=== PATIENT | female | born 1935 | race Caucasian/White ===

== ENCOUNTER 2022-04-01 11:29 | Inpatient (IN) | payer MEDICARE ==
[~2022-04-01] VITALS: Ht 165.1 cm; Wt 77.2 kg
[~2022-04-01 11:29] MED LIST: ASPI-1265 PO; CITA20TA28 PO; RED600TA PO; cpap; d-3
[2022-04-01] MEDS ORDERED: methylPREDNISolone sod succ 125mg/2ml vial IV ONE (11:50)
[2022-04-01] MEDS ORDERED: albuterol 2.5 MG/3 ML nebule CONTNEB PRN ×2 (11:50→12:10)
[2022-04-01 11:57] LABS: BASOPHILS # (AUTO) 0.1 X10'3 (0-0.2); HEMOGLOBIN 12.2 g/dl (12.0-16.0); MEAN PLATELET VOLUME 8.7 FL (7.4-10.4)
[2022-04-01 11:59] LABS: BASOPHILS % (AUTO) 0.4 % (0-1); EOSINOPHILS % (AUTO) 0 % (0-6); HEMATOCRIT 38.4 % (35.0-45.0); LYMPHOCYTES # (AUTO) 1.1 X10'3 (1.1-4.8); LYMPHOCYTES % (AUTO) 3.5 % (21-51); MEAN CORPUSCULAR HEMOGLOBIN 29.7 PG (27.0-31.0); MEAN CORPUSCULAR HGB CONC 31.9 g/dL (33.0-36.5); MEAN CORPUSCULAR VOLUME 93.2 FL (78-98); MONOCYTES # (AUTO) 2.2 X10'3 (0-0.9); MONOCYTES % (AUTO) 6.7 % (2-12); NEUTROPHILS # (AUTO) 29.2 X10'3 (1.8-7.7); NEUTROPHILS % (AUTO) 89.4 % (42-75); PLATELET COUNT 248 X10'3 (140-440); RED BLOOD COUNT 4.12 X10'6 (4.20-5.60); RED CELL DISTRIBUTION WIDTH 13.2 % (11.5-14.5)
[2022-04-01] MEDS ORDERED: albuterol 2.5 MG/3 ML nebule ONE (12:04)
[2022-04-01 12:07] LABS: WHITE BLOOD COUNT 32.7 X10'3 (4.5-11.0)
[2022-04-01] MEDS ORDERED: azithromycin/NS 500mg/250ml 250 ML IV ONE (12:20)
[2022-04-01] MEDS ORDERED: normal saline 1000ML IV soln IVB ONE (12:20)
[2022-04-01] MEDS ORDERED: CefTRIAXone/D5W-Rocephin 1gm 50 ML IV ONE (12:20)
[2022-04-01 12:23] LABS: ALANINE AMINOTRANSFERASE 17 U/L (12-78); ALBUMIN 2.9 G/DL (3.4-5.0); ALBUMIN/GLOBULIN RATIO 0.7 (1.1-1.5); ALKALINE PHOSPHATASE 63 IU/L (46-116); ANION GAP 12 (8-16); ASPARTATE AMINO TRANSFERASE 25 U/L (10-37); BILIRUBIN,TOTAL 0.8 MG/DL (0.1-1.0); BLOOD UREA NITROGEN 34 MG/DL (7-18); BUN/CREATININE RATIO 14.9 (6.6-38.0); CALCIUM 8.9 MG/DL (8.5-10.1); CHLORIDE 98 MMOL/L (99-107); CREATININE 2.28 MG/DL (0.40-0.90); GLUCOSE 114 MG/DL (70-104); SODIUM 134 MMOL/L (135-145); TOTAL CARBON DIOXIDE 23.7 MMOL/L (24-32); TOTAL PROTEIN 7.3 G/DL (6.4-8.2); eGFR 20 ML/MIN
[2022-04-01 12:28] LABS: PLATELET ESTIMATE NORMAL; TOTAL CELLS COUNTED 100
[2022-04-01 12:30] LABS: MAGNESIUM 1.9 MG/DL (1.5-2.4)
[2022-04-01] MEDS ORDERED: mag hydrox/Alum hydrox/simeth 30ml oral suspension PO PRN (13:15)
[2022-04-01] MEDS ORDERED: acetaminophen 325mg tablet PO PRN ×2 (13:15)
[2022-04-01] MEDS ORDERED: HYDROcodone/acetaminophen 10/325mg tab PO PRN (13:15)
[2022-04-01] MEDS ORDERED: acetaminophen 650mg rectal suppository RC PRN (13:15)
[2022-04-01] MEDS ORDERED: magnesium 4gm in 100ml NS 100 ML IV PRN (13:15)
[2022-04-01] MEDS ORDERED: magnesium Cl slow-release 64mg tablet PO PRN (13:15)
[2022-04-01] MEDS ORDERED: potassium Cl 40MEQ/1/2NS 520ml 520 ML IV PRN (13:15)
[2022-04-01] MEDS ORDERED: morphine 2 MG/ML inj. syringe IV PRN ×2 (13:15)
[2022-04-01] MEDS ORDERED: magnesium hydroxide 30ml (MOM) UD suspension PO PRN (13:15)
[2022-04-01] MEDS ORDERED: HYDROcodone/acetaminophen 5mg/325mg tablet PO PRN (13:15)
[2022-04-01] MEDS ORDERED: ondansetron 4mg rapidly disintigrating tab PO PRN (13:15)
[2022-04-01] MEDS ORDERED: potassium Cl 20 mEq SR tablet PO PRN ×2 (13:15)
[2022-04-01] MEDS ORDERED: PERFLUTREN PROTEIN-A MICROSPHR (Optison) 0.22 MG/ML 3ML VIAL IV ONE (13:15)
[2022-04-01] MEDS ORDERED: ondansetron/PF 4mg/2ml inj IV PRN (13:15)
[2022-04-01] MEDS: normal saline 1000ml 1,000 ML IV SCH ×2 (14:06→23:17)
[2022-04-01] MEDS: ipratropium/albuterol 3ml nebule NEB PRN (14:19)
[2022-04-01] MEDS ORDERED: aspirin 81mg tab.chew PO ONE (15:40)
[2022-04-01] MEDS ORDERED: WARF4TAB69 PO (18:40)
[2022-04-01] MEDS ORDERED: FLUT1BLS13 PO (18:40)
[2022-04-01] MEDS ORDERED: WARF-65 PO (18:40)
[2022-04-01] MEDS ORDERED: ESCI20TA39 PO (18:40)
[2022-04-01] MEDS ORDERED: ALBU18HF2 PO (18:41)
[2022-04-01] MEDS: famotidine 20mg tablet PO SCH (19:43)
[2022-04-01] MEDS: docusate sod 100mg capsule PO SCH (19:43)
[2022-04-01] MEDS: K and/or MAG REPLACEMENT MC SCH (19:44)
[2022-04-01] MEDS ORDERED: enoxaparin 30mg/0.3ml syringe SQ SCH (20:00)
[2022-04-01] MEDS ORDERED: temazepam 15mg capsule PO PRN (21:00)
--- NOTE | 2022-04-01 23:00 | NUR ---
RT ASSISTED PT WITH HOME CPAP MACHINE FOR SLEEP
[2022-04-02] MEDS ORDERED: non-formulary drug (Warfarin Sodium 1 TABLET) PO SCH (00:30)
[2022-04-02] MEDS: albuterol 2.5 MG/3 ML nebule NEB SCH ×4 (03:00→20:09)
[2022-04-02 04:04] LABS: BASOPHILS % (AUTO) 0.1 % (0-1); EOSINOPHILS % (AUTO) 0 % (0-6); HEMATOCRIT 33.5 % (35.0-45.0); HEMOGLOBIN 10.9 g/dl (12.0-16.0); LYMPHOCYTES # (AUTO) 1.2 X10'3 (1.1-4.8); LYMPHOCYTES % (AUTO) 4.6 % (21-51); MEAN CORPUSCULAR HEMOGLOBIN 30.6 PG (27.0-31.0); MEAN CORPUSCULAR HGB CONC 32.6 g/dL (33.0-36.5); MEAN CORPUSCULAR VOLUME 93.7 FL (78-98); MONOCYTES # (AUTO) 1.1 X10'3 (0-0.9); MONOCYTES % (AUTO) 4.3 % (2-12); NEUTROPHILS # (AUTO) 22.7 X10'3 (1.8-7.7); PLATELET COUNT 219 X10'3 (140-440); RED BLOOD COUNT 3.58 X10'6 (4.20-5.60); RED CELL DISTRIBUTION WIDTH 13.5 % (11.5-14.5)
[2022-04-02 04:09] LABS: ALANINE AMINOTRANSFERASE 16 U/L (12-78); ALBUMIN 2.3 G/DL (3.4-5.0); ALBUMIN/GLOBULIN RATIO 0.6 (1.1-1.5); ALKALINE PHOSPHATASE 76 IU/L (46-116); ANION GAP 9 (8-16); ASPARTATE AMINO TRANSFERASE 22 U/L (10-37); BILIRUBIN,TOTAL 0.3 MG/DL (0.1-1.0); BLOOD UREA NITROGEN 44 MG/DL (7-18); CALCIUM 8.1 MG/DL (8.5-10.1); CHLORIDE 105 MMOL/L (99-107); CREATININE 2.31 MG/DL (0.40-0.90); GLUCOSE 205 MG/DL (70-104); MAGNESIUM 2.1 MG/DL (1.5-2.4); PHOSPHORUS 2.9 MG/DL (2.3-4.5); POTASSIUM 3.6 MMOL/L (3.5-5.1); SODIUM 138 MMOL/L (135-145); TOTAL CARBON DIOXIDE 23.9 MMOL/L (24-32); TOTAL PROTEIN 6.3 G/DL (6.4-8.2); eGFR 20 ML/MIN
[2022-04-02] MEDS: K and/or MAG REPLACEMENT MC SCH ×2 (08:00→19:07)
[2022-04-02] MEDS: budesonide 0.5mg/2ml UD nebule IH SCH ×2 (08:43→20:09)
[2022-04-02] MEDS: normal saline 1000ml 1,000 ML IV SCH ×2 (10:03→10:12)
[2022-04-02] MEDS: azithromycin/NS 500mg/250ml 250 ML IV SCH (10:12)
[2022-04-02] MEDS: CefTRIAXone/D5W-Rocephin 1gm 50 ML IV SCH (10:12)
[2022-04-02] MEDS: famotidine 20mg tablet PO SCH (10:12)
[2022-04-02] MEDS: aspirin 81mg tab.chew PO SCH (10:12)
[2022-04-02] MEDS: docusate sod 100mg capsule PO SCH ×2 (10:12→19:07)
[2022-04-02] MEDS: ESCITALOPRAM OXALATE 5 MG TABLET PO SCH (10:13)
--- NOTE | 2022-04-02 14:03 | NUR ---
Incentive Spirometer and Flutter valve given to patient per doctor. Addendum: 04/02/22 at 1419 by Gail Moon RN Amended: Links added.
[2022-04-02 15:30] VITALS: BP 159/66
[2022-04-02] MEDS ORDERED: diltiazem-D5W 125mg/125ml 125 ML IV SCH (16:40)
[2022-04-02] MEDS ORDERED: diltiazem 5mg/ml 5ml inj. IV ONE (16:40)
--- NOTE | 2022-04-02 17:32 | NUR ---
received report from Gail so I can start cardizem gtt .Lizzeth not here from pharmacy. I will call down and have them send it up
[2022-04-02] MEDS: diltiazem-NS 100mg/100ml 100 ML IV SCH (17:41)
[2022-04-02 18:00] VITALS: BP_SYST 142; BP_SYST 145; BP_DIAS 70; BP_DIAS 74
--- NOTE | 2022-04-02 18:07 | NUR ---
Problems reprioritized. Patient report given, questions answered & plan of care reviewed with Herbert SANTANA. Patient resting in bed in no acute distress. Cardizem gtt started.
--- NOTE | 2022-04-02 18:30 | NUR ---
Problems reprioritized. Patient report given, questions answered & plan of care reviewed with Dunia SANTANA.
[2022-04-02 22:00] VITALS: BP 131/74
[2022-04-03] VITALS (10 sets, daily range): BP systolic 77–138; BP diastolic 56–88
[2022-04-03] MEDS: albuterol 2.5 MG/3 ML nebule NEB SCH ×4 (02:55→19:50)
[2022-04-03] MEDS: ipratropium/albuterol 3ml nebule NEB PRN ×2 (05:36→22:52)
[2022-04-03] MEDS: normal saline 1000ml 1,000 ML IV SCH ×2 (05:43→15:23)
[2022-04-03] MEDS: diltiazem-NS 100mg/100ml 100 ML IV SCH (05:44)
[2022-04-03] MEDS: CefTRIAXone/D5W-Rocephin 1gm 50 ML IV SCH (07:24)
[2022-04-03] MEDS: azithromycin/NS 500mg/250ml 250 ML IV SCH (07:24)
[2022-04-03] MEDS: docusate sod 100mg capsule PO SCH ×2 (07:27→20:27)
[2022-04-03] MEDS: ESCITALOPRAM OXALATE 5 MG TABLET PO SCH (07:27)
[2022-04-03] MEDS: aspirin 81mg tab.chew PO SCH (07:27)
[2022-04-03] MEDS: K and/or MAG REPLACEMENT MC SCH ×2 (08:00→20:00)
[2022-04-03 08:15] LABS: HEMATOCRIT 32.7 % (35.0-45.0); HEMOGLOBIN 10.7 g/dl (12.0-16.0); MEAN CORPUSCULAR VOLUME 93.1 FL (78-98); RED BLOOD COUNT 3.52 X10'6 (4.20-5.60); WHITE BLOOD COUNT 28.7 X10'3 (4.5-11.0)
[2022-04-03 08:16] LABS: BASOPHILS # (AUTO) 0.1 X10'3 (0-0.2); BASOPHILS % (AUTO) 0.2 % (0-1); EOSINOPHILS % (AUTO) 0 % (0-6); LYMPHOCYTES # (AUTO) 0.9 X10'3 (1.1-4.8); LYMPHOCYTES % (AUTO) 3.2 % (21-51); MEAN CORPUSCULAR HEMOGLOBIN 30.5 PG (27.0-31.0); MEAN CORPUSCULAR HGB CONC 32.8 g/dL (33.0-36.5); MONOCYTES # (AUTO) 1.9 X10'3 (0-0.9); MONOCYTES % (AUTO) 6.5 % (2-12); NEUTROPHILS # (AUTO) 25.8 X10'3 (1.8-7.7); NEUTROPHILS % (AUTO) 90.1 % (42-75); PLATELET COUNT 267 X10'3 (140-440); RED CELL DISTRIBUTION WIDTH 13.7 % (11.5-14.5)
--- NOTE | 2022-04-03 08:26 | NUR ---
Joe VELASCO re: critical lab, Patient 14B Danae Baxter, critical lab @ 0600 today wbc 28.7, previous values - wbc 04/01 32.7, and 04/02 wbc 25.0. Please advise, Avelina Harrell LVN II @ 2657.
[2022-04-03 08:36] LABS: ANION GAP 10 (8-16); BILIRUBIN,TOTAL 0.3 MG/DL (0.1-1.0); BLOOD UREA NITROGEN 48 MG/DL (7-18); CALCIUM 8.2 MG/DL (8.5-10.1); CHLORIDE 108 MMOL/L (99-107); GLUCOSE 133 MG/DL (70-104); MAGNESIUM 2.2 MG/DL (1.5-2.4); PHOSPHORUS 2.4 MG/DL (2.3-4.5); POTASSIUM 3.7 MMOL/L (3.5-5.1); SODIUM 140 MMOL/L (135-145); TOTAL CARBON DIOXIDE 21.7 MMOL/L (24-32); TOTAL PROTEIN 6.4 G/DL (6.4-8.2); eGFR 30 ML/MIN
[2022-04-03 08:37] LABS: ALANINE AMINOTRANSFERASE 23 U/L (12-78); ALBUMIN 2.3 G/DL (3.4-5.0); ALBUMIN/GLOBULIN RATIO 0.6 (1.1-1.5); ASPARTATE AMINO TRANSFERASE 22 U/L (10-37)
[2022-04-03 09:12] LABS: ELLIPTOCYTES FEW; PLATELET ESTIMATE NORMAL; POIKILOCYTOSIS FEW; TOTAL CELLS COUNTED 100
[2022-04-03] MEDS: budesonide 0.5mg/2ml UD nebule IH SCH ×2 (09:12→19:50)
[2022-04-03 09:16] LABS: ALKALINE PHOSPHATASE 55 IU/L (46-116)
[2022-04-03] MEDS ORDERED: NORMAL SALINE IV ONE (12:30)
[2022-04-03] MEDS ORDERED: PHYTONADIONE IV ONE (12:30)
[2022-04-03] MEDS: diltiazem 30mg tablet PO SCH ×2 (14:30→20:27)
--- NOTE | 2022-04-03 15:38 | NUR ---
cardizem gtt off and DC patient on po med
--- NOTE | 2022-04-03 17:50 | NUR ---
orientee documentation: I have reviewed and agree with all interventions, assessments performed and documented by Avelina NEWSOME . Orientee Medication Administration: For this medication-pass time frame, all medication were reviewed, dispensed, administered and documented per hospital policy by Avelina NEWSOME .
--- NOTE | 2022-04-03 18:06 | NUR ---
Problems reprioritized. Patient report given, questions answered & plan of care reviewed with Herbert SANTANA. Patient resting in bed in n acute distress.
[2022-04-03 23:31] LABS: ABG BASE EXCESS -6.1 mmol/L (-2.0-2.0); ABG HCO3 18.8 mmol/L (22.0-26.0); ABG OXYGEN SATURATION 95.3 % (94-97); ABG PCO2 (T) 35.2 mmHg (32.0-45.0); ABG PO2 (T) 82.1 mmHg (75.0-100.0); ALLEN'S TEST POSITIVE; FCOHb 0.3 % (0.0-3.9); FMetHb 0.4 % (0.0-1.5); FO2Hb 94.6 % (94-97); TOTAL HEMOGLOBIN 11.9 G/dl (12.0-16.0)
--- NOTE | 2022-04-03 23:49 | NUR ---
6843 Dr Piedra reported vital signs and pt resp distress RT at bedside portable chest xray taken as ordered ABG drawn as per orders Charlotte Chen RN
[2022-04-04] VITALS (13 sets, daily range): BP systolic 112–166; BP diastolic 54–85
[2022-04-04] MEDS: normal saline 1000ml 1,000 ML IV SCH ×3 (01:15→22:35)
[2022-04-04] MEDS: diltiazem 30mg tablet PO SCH ×4 (02:20→19:33)
[2022-04-04] MEDS: albuterol 2.5 MG/3 ML nebule NEB SCH ×4 (03:21→19:51)
--- NOTE | 2022-04-04 06:30 | NUR ---
Patient in room PCU 3014. I have received report from Herbert SANTANA and had the opportunity to ask questions and assume patient care.
[2022-04-04 07:06] LABS: BASOPHILS % (AUTO) 0.1 % (0-1); EOSINOPHILS % (AUTO) 0 % (0-6); HEMATOCRIT 29.7 % (35.0-45.0); HEMOGLOBIN 9.8 g/dl (12.0-16.0); LYMPHOCYTES # (AUTO) 1.2 X10'3 (1.1-4.8); LYMPHOCYTES % (AUTO) 3.7 % (21-51); MEAN CORPUSCULAR HEMOGLOBIN 30.5 PG (27.0-31.0); MEAN CORPUSCULAR HGB CONC 32.8 g/dL (33.0-36.5); MEAN CORPUSCULAR VOLUME 92.8 FL (78-98); MEAN PLATELET VOLUME 8.9 FL (7.4-10.4); MONOCYTES # (AUTO) 2.6 X10'3 (0-0.9); MONOCYTES % (AUTO) 8.2 % (2-12); NEUTROPHILS # (AUTO) 27.7 X10'3 (1.8-7.7); PLATELET COUNT 259 X10'3 (140-440); RED CELL DISTRIBUTION WIDTH 13.8 % (11.5-14.5)
[2022-04-04 07:16] LABS: WHITE BLOOD COUNT 31.5 X10'3 (4.5-11.0)
[2022-04-04] MEDS: budesonide 0.5mg/2ml UD nebule IH SCH ×2 (07:19→19:51)
--- NOTE | 2022-04-04 07:25 | NUR ---
PAGER ID: [phone] MESSAGE: 3014B [place] WBC 31.5. Thank you Diamante NEWSOME x [phone].
[2022-04-04 07:54] LABS: PLATELET ESTIMATE NORMAL; TOTAL CELLS COUNTED 100
[2022-04-04] MEDS: K and/or MAG REPLACEMENT MC SCH ×2 (08:00→19:16)
--- NOTE | 2022-04-04 08:24 | NUR ---
PAGER ID: [phone] MESSAGE: 3014 B INR 8.0. Thank you Diamante NEWSOME [phone].
[2022-04-04] MEDS: docusate sod 100mg capsule PO SCH ×2 (08:38→19:33)
[2022-04-04] MEDS: aspirin 81mg tab.chew PO SCH (08:39)
[2022-04-04] MEDS: ESCITALOPRAM OXALATE 5 MG TABLET PO SCH (08:39)
[2022-04-04] MEDS: famotidine 20mg tablet PO SCH (08:39)
[2022-04-04 08:44] LABS: ALANINE AMINOTRANSFERASE 28 U/L (12-78); ALBUMIN 2.3 G/DL (3.4-5.0); ALBUMIN/GLOBULIN RATIO 0.6 (1.1-1.5); ALKALINE PHOSPHATASE 61 IU/L (46-116); ANION GAP 10 (8-16); ASPARTATE AMINO TRANSFERASE 24 U/L (10-37); BILIRUBIN,TOTAL 0.6 MG/DL (0.1-1.0); BLOOD UREA NITROGEN 39 MG/DL (7-18); BUN/CREATININE RATIO 26.4 (6.6-38.0); CALCIUM 8.6 MG/DL (8.5-10.1); CHLORIDE 111 MMOL/L (99-107); CREATININE 1.48 MG/DL (0.40-0.90); GLUCOSE 134 MG/DL (70-104); MAGNESIUM 2.3 MG/DL (1.5-2.4); PHOSPHORUS 2.1 MG/DL (2.3-4.5); POTASSIUM 4.2 MMOL/L (3.5-5.1); SODIUM 143 MMOL/L (135-145); TOTAL CARBON DIOXIDE 22.5 MMOL/L (24-32); TOTAL PROTEIN 6.2 G/DL (6.4-8.2); eGFR 33 ML/MIN
[2022-04-04] MEDS: CefTRIAXone/D5W-Rocephin 1gm 50 ML IV SCH (09:21)
[2022-04-04] MEDS: azithromycin/NS 500mg/250ml 250 ML IV SCH (09:21)
--- NOTE | 2022-04-04 10:22 | NUR ---
PAGER ID: [phone] MESSAGE: 2821O [place] patients phos 2.1 do you want it replaced? Thank you Diamante NEWSOME [phone].
[2022-04-04] MEDS: methylPREDNISolone sod succ 125mg/2ml vial IV SCH ×2 (11:15→16:22)
[2022-04-04] MEDS ORDERED: CefTRIAXone/D5W-Rocephin 1gm 50 ML IV ONE (11:15)
--- NOTE | 2022-04-04 11:38 | NUR ---
Called report to ICU spoke with Marianna SANTANA.
--- NOTE | 2022-04-04 12:20 | NUR ---
Patient transferred to ICU. Patient taken in the bed by 2 nurses and RT. Patient transferred into ICU's bed.
--- NOTE | 2022-04-04 12:20 | NUR ---
Patient transferred with chart, patient specific meds, personal items in stable condition.
--- NOTE | 2022-04-04 12:30 | NUR ---
received pt from pcu. placed on bedside monitor, bipap in place
[2022-04-04 13:39] LABS: ABG BASE EXCESS -5.4 mmol/L (-2.0-2.0); ABG HCO3 19.7 mmol/L (22.0-26.0); ABG OXYGEN SATURATION 96.6 % (94-97); ABG PCO2 (T) 36.8 mmHg (32.0-45.0); ALLEN'S TEST POSITIVE; FCOHb 0.2 % (0.0-3.9); FMetHb 0.3 % (0.0-1.5); FO2Hb 96.1 % (94-97); RESPIRATORY RATE 8 b/min; TIDAL VOLUME 530 mL; TOTAL HEMOGLOBIN 10.2 G/dl (12.0-16.0)
[2022-04-04] MEDS ORDERED: phytonadione inj. 10 MG in normal saline 100ml IV soln 100 ML IV ONE ×2 (14:05→20:15)
--- NOTE | 2022-04-04 18:10 | NUR ---
Patient in room CICU 2013. I have received report from Elvia Wilkins RN and had the opportunity to ask questions and assume patient care.
[2022-04-04] MEDS: lactose-reduced food (Ensure Enlive) - 237ml bottle PO SCH (18:41)
--- NOTE | 2022-04-04 20:14 | NUR ---
Original vitamin K IV order not infused as noted by RN. Bag scanned at 1405, but bag left clamped and bag still full and now . Notified Alise MCKINLEY, new order recieved to run vitamin K because first infusion was not ran. 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
[2022-04-05] VITALS (18 sets, daily range): BP systolic 105–175; BP diastolic 55–98
[2022-04-05] MEDS: methylPREDNISolone sod succ 125mg/2ml vial IV SCH ×3 (00:39→16:41)
[2022-04-05] MEDS: diltiazem 30mg tablet PO SCH ×4 (01:25→20:19)
[2022-04-05] MEDS: albuterol 2.5 MG/3 ML nebule NEB SCH ×4 (03:23→22:10)
[2022-04-05 06:03] LABS: BASOPHILS # (AUTO) 0.1 X10'3 (0-0.2); BASOPHILS % (AUTO) 0.3 % (0-1); EOSINOPHILS % (AUTO) 0 % (0-6); HEMATOCRIT 30.7 % (35.0-45.0); HEMOGLOBIN 9.8 g/dl (12.0-16.0); LYMPHOCYTES # (AUTO) 1.2 X10'3 (1.1-4.8); MEAN CORPUSCULAR HEMOGLOBIN 30.4 PG (27.0-31.0); MEAN CORPUSCULAR VOLUME 95.2 FL (78-98); MEAN PLATELET VOLUME 8.6 FL (7.4-10.4); MONOCYTES # (AUTO) 0.8 X10'3 (0-0.9); MONOCYTES % (AUTO) 3.4 % (2-12); NEUTROPHILS # (AUTO) 21.8 X10'3 (1.8-7.7); NEUTROPHILS % (AUTO) 91.3 % (42-75); PLATELET COUNT 238 X10'3 (140-440); RED BLOOD COUNT 3.23 X10'6 (4.20-5.60); RED CELL DISTRIBUTION WIDTH 14.4 % (11.5-14.5); WHITE BLOOD COUNT 23.9 X10'3 (4.5-11.0)
--- NOTE | 2022-04-05 06:16 | NUR ---
Problems reprioritized. Patient report given, questions answered & plan of care reviewed with Micha RN.
[2022-04-05 06:18] LABS: ALANINE AMINOTRANSFERASE 25 U/L (12-78); ALBUMIN 1.9 G/DL (3.4-5.0); ALBUMIN/GLOBULIN RATIO 0.5 (1.1-1.5); ALKALINE PHOSPHATASE 57 IU/L (46-116); ANION GAP 10 (8-16); ASPARTATE AMINO TRANSFERASE 14 U/L (10-37); BILIRUBIN,TOTAL 0.3 MG/DL (0.1-1.0); BLOOD UREA NITROGEN 37 MG/DL (7-18); BUN/CREATININE RATIO 31.1 (6.6-38.0); CALCIUM 8.6 MG/DL (8.5-10.1); CHLORIDE 108 MMOL/L (99-107); CREATININE 1.19 MG/DL (0.40-0.90); GLUCOSE 179 MG/DL (70-104); MAGNESIUM 2.4 MG/DL (1.5-2.4); PHOSPHORUS 2.7 MG/DL (2.3-4.5); POTASSIUM 4.3 MMOL/L (3.5-5.1); SODIUM 137 MMOL/L (135-145); TOTAL CARBON DIOXIDE 19.2 MMOL/L (24-32); TOTAL PROTEIN 6.1 G/DL (6.4-8.2); eGFR 43 ML/MIN
[2022-04-05] MEDS: K and/or MAG REPLACEMENT MC SCH ×2 (06:51→20:00)
[2022-04-05] MEDS: normal saline 1000ml 1,000 ML IV SCH (07:15)
[2022-04-05] MEDS: budesonide 0.5mg/2ml UD nebule IH SCH ×2 (08:16→22:10)
[2022-04-05 08:55] LABS: TOTAL CELLS COUNTED 100
[2022-04-05] MEDS: CefTRIAXone 2gm/D5W 50ml BAG 50 ML IV SCH (08:56)
[2022-04-05 08:57] LABS: LARGE PLATELETS FEW; PLATELET ESTIMATE NORMAL
[2022-04-05] MEDS: aspirin 81mg tab.chew PO SCH (08:57)
[2022-04-05] MEDS: lactose-reduced food (Ensure Enlive) - 237ml bottle PO SCH ×3 (08:58→18:00)
[2022-04-05] MEDS: docusate sod 100mg capsule PO SCH ×2 (08:58→20:19)
[2022-04-05] MEDS: ESCITALOPRAM OXALATE 5 MG TABLET PO SCH (08:58)
--- NOTE | 2022-04-05 17:33 | NUR ---
Pt transferred to PCU. Reported call. All questions answered to the satisfaction of the accepting RN. Tele removed. Pt transferred in wheelchair on 6L NC.
[2022-04-05] MEDS: apixaban 2.5mg tablet PO SCH (20:19)
[2022-04-06] MEDS: methylPREDNISolone sod succ 125mg/2ml vial IV SCH ×3 (00:52→19:32)
[2022-04-06 02:00] VITALS: BP 154/71
[2022-04-06] MEDS: albuterol 2.5 MG/3 ML nebule NEB SCH ×4 (02:31→20:22)
[2022-04-06] MEDS: diltiazem 30mg tablet PO SCH ×4 (02:47→19:33)
--- NOTE | 2022-04-06 06:16 | NUR ---
Problems reprioritized. Patient report given, questions answered & plan of care reviewed with EN Marie
[2022-04-06 06:47] LABS: BASOPHILS % (AUTO) 0.1 % (0-1); EOSINOPHILS % (AUTO) 0 % (0-6); HEMATOCRIT 30.9 % (35.0-45.0); HEMOGLOBIN 10.1 g/dl (12.0-16.0); LYMPHOCYTES # (AUTO) 1.2 X10'3 (1.1-4.8); LYMPHOCYTES % (AUTO) 4.6 % (21-51); MEAN CORPUSCULAR HEMOGLOBIN 30.3 PG (27.0-31.0); MEAN CORPUSCULAR HGB CONC 32.7 g/dL (33.0-36.5); MEAN CORPUSCULAR VOLUME 92.5 FL (78-98); MEAN PLATELET VOLUME 8.2 FL (7.4-10.4); NEUTROPHILS # (AUTO) 23.1 X10'3 (1.8-7.7); NEUTROPHILS % (AUTO) 91.3 % (42-75); PLATELET COUNT 335 X10'3 (140-440); RED BLOOD COUNT 3.34 X10'6 (4.20-5.60); RED CELL DISTRIBUTION WIDTH 13.8 % (11.5-14.5)
[2022-04-06 06:56] LABS: WHITE BLOOD COUNT 25.3 X10'3 (4.5-11.0)
[2022-04-06 07:00] VITALS: BP 146/59
[2022-04-06 07:09] LABS: PLATELET ESTIMATE NORMAL; POLYCHROMASIA FEW; TOTAL CELLS COUNTED 100
[2022-04-06 07:17] LABS: ALANINE AMINOTRANSFERASE 28 U/L (12-78); ALBUMIN 1.9 G/DL (3.4-5.0); ALBUMIN/GLOBULIN RATIO 0.5 (1.1-1.5); ALKALINE PHOSPHATASE 65 IU/L (46-116); ANION GAP 10 (8-16); ASPARTATE AMINO TRANSFERASE 12 U/L (10-37); BILIRUBIN,TOTAL 0.3 MG/DL (0.1-1.0); BLOOD UREA NITROGEN 45 MG/DL (7-18); BUN/CREATININE RATIO 34.1 (6.6-38.0); CALCIUM 9.2 MG/DL (8.5-10.1); CHLORIDE 109 MMOL/L (99-107); CREATININE 1.32 MG/DL (0.40-0.90); GLUCOSE 221 MG/DL (70-104); PHOSPHORUS 2.3 MG/DL (2.3-4.5); POTASSIUM 4.3 MMOL/L (3.5-5.1); SODIUM 141 MMOL/L (135-145); TOTAL PROTEIN 5.9 G/DL (6.4-8.2); eGFR 38 ML/MIN
--- NOTE | 2022-04-06 07:31 | NUR ---
"MORNING DR. SERRA REPORTING WBC 25.9 FOR PT SHADY, [facility]"
[2022-04-06] MEDS: K and/or MAG REPLACEMENT MC SCH ×2 (08:00→19:16)
[2022-04-06] MEDS: CefTRIAXone 2gm/D5W 50ml BAG 50 ML IV SCH (08:33)
[2022-04-06] MEDS: aspirin 81mg tab.chew PO SCH (08:34)
[2022-04-06] MEDS: docusate sod 100mg capsule PO SCH ×2 (08:34→20:00)
[2022-04-06] MEDS: famotidine 20mg tablet PO SCH (08:34)
[2022-04-06] MEDS: ESCITALOPRAM OXALATE 5 MG TABLET PO SCH (08:34)
[2022-04-06] MEDS: lactose-reduced food (Ensure Enlive) - 237ml bottle PO SCH ×3 (08:35→18:01)
[2022-04-06] MEDS: apixaban 2.5mg tablet PO SCH ×2 (08:35→20:20)
[2022-04-06] MEDS: budesonide 0.5mg/2ml UD nebule IH SCH ×2 (08:38→20:22)
--- NOTE | 2022-04-06 11:04 | NUR ---
NEED IV ACCESS FOR PT IN ROOM 3028B, SHADY SCHRADER
[2022-04-06 13:00] VITALS: BP 142/80
--- NOTE | 2022-04-06 14:04 | NUR ---
Initial: Pt admit for sepsis, PNA, ELIO with hyponatremia, COPD exacerbation, and acute on chronic respiratory failure with hypoxemia. Pt on a regular diet, documented with mostly 25% PO intake though up to 50% PO intake at dinner 04/05. Pt started on an Ensure Enlive TID, documented with 75% PO intake of 2 of 4 ONS. Pending documentation of PO intake of meals and ONS for today. Will monitor additional trends and need for further nutrition intervention. LBM 04/03, receiving routine bowel care BID and with additional PRN bowel care available. Will continue to follow closely. Recommendations: 1) Continue regular diet 2) Ensure Enlive TID (sub Ensure Plus HP d/t product shortage) 3) Encourage PO intake 4) Routine bowel care 5) Daily scaled weights per rx Addendum: 04/06/22 at [address] Amended: Links added.
[2022-04-06 18:00] VITALS: BP 153/68
[2022-04-06 22:00] VITALS: BP 159/84
[2022-04-07 02:00] VITALS: BP 167/77
[2022-04-07] MEDS: diltiazem 30mg tablet PO SCH ×4 (02:00→20:03)
[2022-04-07] MEDS: albuterol 2.5 MG/3 ML nebule NEB SCH ×4 (02:44→20:18)
[2022-04-07 07:00] VITALS: BP 163/91
[2022-04-07] MEDS: K and/or MAG REPLACEMENT MC SCH ×2 (08:00→19:13)
[2022-04-07] MEDS: CefTRIAXone 2gm/D5W 50ml BAG 50 ML IV SCH (08:16)
[2022-04-07] MEDS: aspirin 81mg tab.chew PO SCH (08:17)
[2022-04-07] MEDS: docusate sod 100mg capsule PO SCH ×2 (08:17→20:03)
[2022-04-07] MEDS: methylPREDNISolone sod succ 125mg/2ml vial IV SCH ×2 (08:17→20:04)
[2022-04-07] MEDS: lactose-reduced food (Ensure Enlive) - 237ml bottle PO SCH ×4 (08:17→18:57)
[2022-04-07] MEDS: ESCITALOPRAM OXALATE 5 MG TABLET PO SCH (08:17)
[2022-04-07] MEDS: apixaban 2.5mg tablet PO SCH ×2 (08:17→20:03)
[2022-04-07] MEDS: budesonide 0.5mg/2ml UD nebule IH SCH ×2 (09:28→20:18)
[2022-04-07 13:00] VITALS: BP 177/68
[2022-04-07] MEDS: guaiFENesin/DM 10ml UD oral syrup PO PRN (13:33)
[2022-04-07 16:56] VITALS: BP 149/71
[2022-04-07 18:00] VITALS: BP 149/64
[2022-04-07 22:00] VITALS: BP 169/92
[2022-04-08 02:00] VITALS: BP 166/70
[2022-04-08] MEDS: albuterol 2.5 MG/3 ML nebule NEB SCH ×4 (02:14→20:17)
[2022-04-08] MEDS: diltiazem 30mg tablet PO SCH ×4 (02:54→20:10)
--- NOTE | 2022-04-08 04:07 | NUR ---
Patient in room PCU 3028. I have received report from Clary SANTANA and had the opportunity to ask questions and assume patient care.
[2022-04-08 07:00] VITALS: BP 145/68
--- NOTE | 2022-04-08 07:01 | NUR ---
Problems reprioritized. Patient report given, questions answered & plan of care reviewed with Cynthia SANTANA.
[2022-04-08] MEDS: K and/or MAG REPLACEMENT MC SCH ×2 (08:00→20:00)
[2022-04-08] MEDS: budesonide 0.5mg/2ml UD nebule IH SCH ×2 (08:27→20:17)
[2022-04-08] MEDS: apixaban 2.5mg tablet PO SCH ×2 (08:53→20:10)
[2022-04-08] MEDS: CefTRIAXone 2gm/D5W 50ml BAG 50 ML IV SCH (08:53)
[2022-04-08] MEDS: famotidine 20mg tablet PO SCH (08:53)
[2022-04-08] MEDS: docusate sod 100mg capsule PO SCH ×2 (08:53→20:15)
[2022-04-08] MEDS: ESCITALOPRAM OXALATE 5 MG TABLET PO SCH (08:53)
[2022-04-08] MEDS: aspirin 81mg tab.chew PO SCH (08:53)
[2022-04-08] MEDS: methylPREDNISolone sod succ 125mg/2ml vial IV SCH ×2 (08:54→20:10)
[2022-04-08 10:49] LABS: ALANINE AMINOTRANSFERASE 39 U/L (12-78); ALBUMIN/GLOBULIN RATIO 0.6 (1.1-1.5); ALKALINE PHOSPHATASE 61 IU/L (46-116); ANION GAP 10 (8-16); ASPARTATE AMINO TRANSFERASE 17 U/L (10-37); BILIRUBIN,TOTAL 0.3 MG/DL (0.1-1.0); BLOOD UREA NITROGEN 43 MG/DL (7-18); BUN/CREATININE RATIO 35.8 (6.6-38.0); CALCIUM 9.2 MG/DL (8.5-10.1); CHLORIDE 105 MMOL/L (99-107); GLUCOSE 185 MG/DL (70-104); POTASSIUM 4.6 MMOL/L (3.5-5.1); SODIUM 140 MMOL/L (135-145); TOTAL CARBON DIOXIDE 25.5 MMOL/L (24-32); TOTAL PROTEIN 5.5 G/DL (6.4-8.2); eGFR 42 ML/MIN
[2022-04-08 10:50] LABS: BASOPHILS # (AUTO) 0.1 X10'3 (0-0.2); BASOPHILS % (AUTO) 0.4 % (0-1); EOSINOPHILS % (AUTO) 0.1 % (0-6); HEMATOCRIT 32.8 % (35.0-45.0); HEMOGLOBIN 10.9 g/dl (12.0-16.0); LYMPHOCYTES % (AUTO) 5.2 % (21-51); MEAN CORPUSCULAR HGB CONC 33.2 g/dL (33.0-36.5); MEAN CORPUSCULAR VOLUME 93.6 FL (78-98); MEAN PLATELET VOLUME 8.1 FL (7.4-10.4); MONOCYTES # (AUTO) 0.8 X10'3 (0-0.9); MONOCYTES % (AUTO) 3.9 % (2-12); NEUTROPHILS # (AUTO) 17.9 X10'3 (1.8-7.7); NEUTROPHILS % (AUTO) 90.4 % (42-75); PLATELET COUNT 386 X10'3 (140-440); RED BLOOD COUNT 3.51 X10'6 (4.20-5.60); RED CELL DISTRIBUTION WIDTH 13.8 % (11.5-14.5); WHITE BLOOD COUNT 19.7 X10'3 (4.5-11.0)
[2022-04-08 11:18] LABS: TOTAL CELLS COUNTED 100
[2022-04-08 11:20] LABS: PLATELET ESTIMATE NORMAL; POIKILOCYTOSIS FEW
[2022-04-08 13:00] VITALS: BP 173/76
[2022-04-08] MEDS: lactose-reduced food (Ensure Enlive) - 237ml bottle PO SCH ×3 (13:39→20:16)
[2022-04-08 18:00] VITALS: BP 181/70
--- NOTE | 2022-04-08 19:20 | NUR ---
Problems reprioritized. Patient report given, questions answered & plan of care reviewed with MAX Means.
[2022-04-09 02:00] VITALS: BP 155/70
[2022-04-09] MEDS: diltiazem 30mg tablet PO SCH ×4 (02:04→19:50)
[2022-04-09] MEDS: albuterol 2.5 MG/3 ML nebule NEB SCH ×4 (03:29→20:16)
[2022-04-09 06:11] LABS: ALANINE AMINOTRANSFERASE 35 U/L (12-78); ALBUMIN 2.2 G/DL (3.4-5.0); ALBUMIN/GLOBULIN RATIO 0.6 (1.1-1.5); ALKALINE PHOSPHATASE 63 IU/L (46-116); ANION GAP 8 (8-16); ASPARTATE AMINO TRANSFERASE 14 U/L (10-37); BILIRUBIN,TOTAL 0.4 MG/DL (0.1-1.0); BLOOD UREA NITROGEN 48 MG/DL (7-18); BUN/CREATININE RATIO 41.4 (6.6-38.0); CALCIUM 9.2 MG/DL (8.5-10.1); CHLORIDE 104 MMOL/L (99-107); CREATININE 1.16 MG/DL (0.40-0.90); GLUCOSE 161 MG/DL (70-104); POTASSIUM 4.7 MMOL/L (3.5-5.1); SODIUM 141 MMOL/L (135-145); TOTAL CARBON DIOXIDE 29.2 MMOL/L (24-32); TOTAL PROTEIN 5.6 G/DL (6.4-8.2); eGFR 44 ML/MIN
[2022-04-09 06:20] LABS: BASOPHILS % (AUTO) 0.1 % (0-1); EOSINOPHILS % (AUTO) 0 % (0-6); HEMATOCRIT 32.2 % (35.0-45.0); HEMOGLOBIN 10.7 g/dl (12.0-16.0); LYMPHOCYTES # (AUTO) 1.3 X10'3 (1.1-4.8); LYMPHOCYTES % (AUTO) 4.8 % (21-51); MEAN CORPUSCULAR HGB CONC 33.4 g/dL (33.0-36.5); MEAN CORPUSCULAR VOLUME 92.8 FL (78-98); MEAN PLATELET VOLUME 7.7 FL (7.4-10.4); MONOCYTES # (AUTO) 1.2 X10'3 (0-0.9); MONOCYTES % (AUTO) 4.5 % (2-12); NEUTROPHILS # (AUTO) 23.8 X10'3 (1.8-7.7); NEUTROPHILS % (AUTO) 90.6 % (42-75); PLATELET COUNT 385 X10'3 (140-440); RED BLOOD COUNT 3.47 X10'6 (4.20-5.60)
[2022-04-09 06:35] LABS: WHITE BLOOD COUNT 26.3 X10'3 (4.5-11.0)
[2022-04-09 07:00] VITALS: BP 148/62
--- NOTE | 2022-04-09 07:24 | NUR ---
Page Sent promotional table spacer PAGER ID: [phone] MESSAGE: 3028B Danae Baxter. PT WBC increased from 19.7 to 26.3. Naomi @[phone] (68 character message out of a maximum of 240) CLOSE [X] SEND ANOTHER PAGE Thank you for visiting [facility] promotional table spacer promotional table spacer
[2022-04-09] MEDS: docusate sod 100mg capsule PO SCH ×2 (07:47→19:50)
[2022-04-09] MEDS: ESCITALOPRAM OXALATE 5 MG TABLET PO SCH (07:48)
[2022-04-09] MEDS: aspirin 81mg tab.chew PO SCH (07:48)
[2022-04-09] MEDS: apixaban 2.5mg tablet PO SCH ×2 (07:48→19:51)
[2022-04-09] MEDS: methylPREDNISolone sod succ 125mg/2ml vial IV SCH ×2 (07:48→19:49)
[2022-04-09] MEDS: lisinopril 20mg tablet PO SCH (07:48)
[2022-04-09] MEDS: K and/or MAG REPLACEMENT MC SCH ×2 (07:48→19:53)
[2022-04-09] MEDS: CefTRIAXone 2gm/D5W 50ml BAG 50 ML IV SCH (08:04)
[2022-04-09] MEDS: guaiFENesin/DM 10ml UD oral syrup PO PRN (08:06)
--- NOTE | 2022-04-09 08:28 | NUR ---
Reassessment: Pt continues on Regular diet w/ avg intake 80% of meals and 65% of ONS, likely meeting est needs at this time. LBM 04/06 receiving routine colace. No change to recommendations at this time, will continue to monitor. Recommendations: 1) Continue regular diet 2) Ensure Enlive TID (sub Ensure Plus HP d/t product shortage) 3) Encourage PO intake 4) Routine bowel care 5) Daily scaled weights per rx Addendum: 04/09/22 at [address] Amended: Links added.
[2022-04-09] MEDS: budesonide 0.5mg/2ml UD nebule IH SCH ×2 (09:00→20:15)
[2022-04-09 09:36] LABS: TOTAL CELLS COUNTED 100
[2022-04-09 09:37] LABS: ANISOCYTOSIS FEW; LARGE PLATELETS FEW; PLATELET ESTIMATE NORMAL; POIKILOCYTOSIS FEW
[2022-04-09 11:00] VITALS: BP 165/68
[2022-04-09] MEDS ORDERED: furosemide 40mg/4ml inj IV ONE (11:42)
[2022-04-09] MEDS: lactose-reduced food (Ensure Enlive) - 237ml bottle PO SCH ×2 (13:00→18:00)
[2022-04-09 15:00] VITALS: BP 182/66
[2022-04-09] MEDS ORDERED: hydrALAZINE 20mg/ml inj. IV PRN (15:00)
[2022-04-09 18:00] VITALS: BP 166/58
--- NOTE | 2022-04-09 18:21 | NUR ---
Problems reprioritized. Patient report given, questions answered & plan of care reviewed with Clary SANTANA . Patient resting in chair in no acute distress.
[2022-04-09] MEDS: furosemide 40mg/4ml inj IV SCH (19:49)
[2022-04-09 22:00] VITALS: BP 154/53
[2022-04-10 02:00] VITALS: BP 102/63
[2022-04-10] MEDS: diltiazem 30mg tablet PO SCH ×4 (03:16→20:00)
[2022-04-10] MEDS: albuterol 2.5 MG/3 ML nebule NEB SCH ×4 (03:50→20:43)
[2022-04-10 06:00] VITALS: BP 160/72
[2022-04-10 06:34] LABS: BASOPHILS % (AUTO) 0.1 % (0-1); EOSINOPHILS % (AUTO) 0 % (0-6); HEMATOCRIT 33.7 % (35.0-45.0); HEMOGLOBIN 11.2 g/dl (12.0-16.0); LYMPHOCYTES % (AUTO) 3.3 % (21-51); MEAN CORPUSCULAR HEMOGLOBIN 30.5 PG (27.0-31.0); MEAN CORPUSCULAR HGB CONC 33.3 g/dL (33.0-36.5); MEAN CORPUSCULAR VOLUME 91.4 FL (78-98); MEAN PLATELET VOLUME 7.5 FL (7.4-10.4); MONOCYTES # (AUTO) 1.4 X10'3 (0-0.9); MONOCYTES % (AUTO) 4.7 % (2-12); NEUTROPHILS # (AUTO) 28.4 X10'3 (1.8-7.7); NEUTROPHILS % (AUTO) 91.9 % (42-75); PLATELET COUNT 391 X10'3 (140-440); RED BLOOD COUNT 3.69 X10'6 (4.20-5.60); RED CELL DISTRIBUTION WIDTH 13.7 % (11.5-14.5)
[2022-04-10 06:39] LABS: WHITE BLOOD COUNT 30.9 X10'3 (4.5-11.0)
--- NOTE | 2022-04-10 06:45 | NUR ---
0645 -- DR. Cruz notified of critical WBC. Addendum: 04/10/22 at 1623 by Abhishek Valerio RN 1500 -- Provider notified of pt ct results
[2022-04-10 07:02] LABS: ALANINE AMINOTRANSFERASE 32 U/L (12-78); ALBUMIN 2.3 G/DL (3.4-5.0); ALBUMIN/GLOBULIN RATIO 0.7 (1.1-1.5); ALKALINE PHOSPHATASE 66 IU/L (46-116); ANION GAP 6 (8-16); ASPARTATE AMINO TRANSFERASE 13 U/L (10-37); BILIRUBIN,TOTAL 0.4 MG/DL (0.1-1.0); BLOOD UREA NITROGEN 54 MG/DL (7-18); CALCIUM 8.8 MG/DL (8.5-10.1); CHLORIDE 100 MMOL/L (99-107); CREATININE 1.46 MG/DL (0.40-0.90); GLUCOSE 174 MG/DL (70-104); POTASSIUM 4.6 MMOL/L (3.5-5.1); SODIUM 139 MMOL/L (135-145); TOTAL CARBON DIOXIDE 32.8 MMOL/L (24-32); TOTAL PROTEIN 5.6 G/DL (6.4-8.2); eGFR 34 ML/MIN
[2022-04-10 07:16] LABS: PLATELET ESTIMATE NORMAL; TOTAL CELLS COUNTED 100
[2022-04-10] MEDS: lactose-reduced food (Ensure Enlive) - 237ml bottle PO SCH ×3 (08:00→18:00)
[2022-04-10] MEDS: K and/or MAG REPLACEMENT MC SCH ×2 (08:00→20:00)
[2022-04-10] MEDS: docusate sod 100mg capsule PO SCH ×2 (08:00→20:00)
[2022-04-10] MEDS: lisinopril 20mg tablet PO SCH (08:55)
[2022-04-10] MEDS: apixaban 2.5mg tablet PO SCH ×2 (08:56→20:00)
[2022-04-10] MEDS: prednisone 10mg tablet PO SCH (08:56)
[2022-04-10] MEDS: famotidine 20mg tablet PO SCH ×2 (08:56→14:26)
[2022-04-10] MEDS: furosemide 40mg/4ml inj IV SCH ×2 (08:57→20:00)
[2022-04-10] MEDS: CefTRIAXone 2gm/D5W 50ml BAG 50 ML IV SCH (08:57)
[2022-04-10] MEDS: ESCITALOPRAM OXALATE 5 MG TABLET PO SCH (08:57)
[2022-04-10] MEDS: aspirin 81mg tab.chew PO SCH (08:57)
[2022-04-10] MEDS: budesonide 0.5mg/2ml UD nebule IH SCH ×2 (10:51→20:43)
[2022-04-10 11:00] VITALS: BP 133/50
[2022-04-10 15:00] VITALS: BP 152/57
--- NOTE | 2022-04-10 16:23 | NUR ---
Pt Aox4. MAJOR. BLE swelling. Uses call light appropriately. Pt family at bedside. VSS. IV patent. CT chest completed today. See results. Daughter updated on pt condition. RN will continue to monitor pt status.
--- NOTE | 2022-04-10 16:58 | NUR ---
1645 -- Pt requesting gluten free diet. RN attempting to contact dietary to verify if this is offered.
[2022-04-10 18:00] VITALS: BP 143/51
[2022-04-10 22:00] VITALS: BP 151/69
[2022-04-11] MEDS: diltiazem 30mg tablet PO SCH ×4 (02:00→21:39)
[2022-04-11] MEDS: albuterol 2.5 MG/3 ML nebule NEB SCH ×4 (02:57→21:00)
[2022-04-11 06:13] LABS: BASOPHILS % (AUTO) 0.1 % (0-1); EOSINOPHILS # (AUTO) 0.1 X10'3 (0-0.9); EOSINOPHILS % (AUTO) 0.2 % (0-6); HEMATOCRIT 32.7 % (35.0-45.0); HEMOGLOBIN 10.7 g/dl (12.0-16.0); LYMPHOCYTES # (AUTO) 3.1 X10'3 (1.1-4.8); LYMPHOCYTES % (AUTO) 8.9 % (21-51); MEAN CORPUSCULAR HGB CONC 32.8 g/dL (33.0-36.5); MEAN CORPUSCULAR VOLUME 91.4 FL (78-98); MEAN PLATELET VOLUME 7.7 FL (7.4-10.4); MONOCYTES # (AUTO) 2.2 X10'3 (0-0.9); MONOCYTES % (AUTO) 6.4 % (2-12); NEUTROPHILS # (AUTO) 29.1 X10'3 (1.8-7.7); NEUTROPHILS % (AUTO) 84.4 % (42-75); PLATELET COUNT 374 X10'3 (140-440); RED BLOOD COUNT 3.57 X10'6 (4.20-5.60); RED CELL DISTRIBUTION WIDTH 13.7 % (11.5-14.5)
--- NOTE | 2022-04-11 06:25 | NUR ---
Patient in room PCU 3028B. I have received report from Ileana SANTANA and had the opportunity to ask questions and assume patient care. Pt is resting comfortably in bed. Pt laying semi fowlers. Pt on 2.5L NC. No s/s of distress, or /s of pain at this time. BLL, call light wihtin reach, freqeuently used items in reach, frequent rounding, boilermaker fitter socks on. Will continue to monitor.
[2022-04-11 06:27] LABS: ALANINE AMINOTRANSFERASE 21 U/L (12-78); ALBUMIN 2.2 G/DL (3.4-5.0); ALBUMIN/GLOBULIN RATIO 0.8 (1.1-1.5); ALKALINE PHOSPHATASE 64 IU/L (46-116); ANION GAP 6 (8-16); ASPARTATE AMINO TRANSFERASE 17 U/L (10-37); BILIRUBIN,TOTAL 0.3 MG/DL (0.1-1.0); BLOOD UREA NITROGEN 59 MG/DL (7-18); BUN/CREATININE RATIO 44.4 (6.6-38.0); CALCIUM 8.5 MG/DL (8.5-10.1); CHLORIDE 100 MMOL/L (99-107); CREATININE 1.33 MG/DL (0.40-0.90); GLUCOSE 107 MG/DL (70-104); POTASSIUM 3.8 MMOL/L (3.5-5.1); SODIUM 139 MMOL/L (135-145); TOTAL CARBON DIOXIDE 33.3 MMOL/L (24-32); TOTAL PROTEIN 5.1 G/DL (6.4-8.2); WHITE BLOOD COUNT 34.5 X10'3 (4.5-11.0); eGFR 38 ML/MIN
--- NOTE | 2022-04-11 06:41 | NUR ---
PAGER ID: [phone] MESSAGE: Danae Baxter 3028B- Critical WBCs of 34.5, -Renae EXT [id number]
[2022-04-11 06:53] LABS: PLATELET ESTIMATE NORMAL; TOTAL CELLS COUNTED 100
[2022-04-11 07:31] VITALS: BP 98/44
[2022-04-11] MEDS: K and/or MAG REPLACEMENT MC SCH ×2 (08:00→20:00)
[2022-04-11] MEDS: apixaban 2.5mg tablet PO SCH ×2 (08:00→21:38)
[2022-04-11] MEDS: ESCITALOPRAM OXALATE 5 MG TABLET PO SCH (08:00)
[2022-04-11] MEDS: lisinopril 20mg tablet PO SCH (08:00)
[2022-04-11] MEDS: prednisone 10mg tablet PO SCH (08:00)
[2022-04-11] MEDS: aspirin 81mg tab.chew PO SCH (08:00)
[2022-04-11] MEDS: docusate sod 100mg capsule PO SCH ×2 (08:00→21:39)
[2022-04-11] MEDS: budesonide 0.5mg/2ml UD nebule IH SCH ×2 (08:26→21:00)
[2022-04-11] MEDS: lactose-reduced food (Ensure Enlive) - 237ml bottle PO SCH ×4 (08:36→19:06)
[2022-04-11] MEDS: CefTRIAXone 2gm/D5W 50ml BAG 50 ML IV SCH (08:55)
[2022-04-11] MEDS: furosemide 40mg/4ml inj IV SCH ×2 (08:55→21:39)
--- NOTE | 2022-04-11 10:28 | NUR ---
Ln obtained stat order for procalcitonin for patient to possibly d/c. Orders updated.
[2022-04-11 11:00] VITALS: BP 112/49
--- NOTE | 2022-04-11 11:16 | NUR ---
Patient 3028B, cassie rizo, procalcitonin decreased to 0.17, may we d/c? Avelina Harrell [employer] [facility] @9738.
[2022-04-11] MEDS ORDERED: acetaZOLAMIDE 250mg tablet PO SCH (12:00)
--- NOTE | 2022-04-11 12:26 | NUR ---
LN sent message tp pharmacy - medication acetazolamide 250mg q4hrs, due at 1200. Please send DAMASO.
--- NOTE | 2022-04-11 12:36 | NUR ---
contacted re: med not in pharmacy - patient 3028B, cassie rizo, new order - acetazolamide 25mg q4hrs, pharmacy does not carry this dose, only 500mg ER, please advise. Avelina Harrell LVN II @9092.
--- NOTE | 2022-04-11 12:43 | NUR ---
Nutrition consult re: "pt would like consult to better personalize her diet in hospital". Pt seen at bedside with family present. Food preferences were obtained and d/w dietary, see below. Pt reports having no appetite at this time though per EMR is with mostly 75-100% PO intake of meals and average 75% PO intake of ONS meeting estimated nutrient needs. Pt confirms that she is drinking the ONS and states she would like to continue with them and denies flavor preference. Daughter reports having ONS at home ready for pt following discharge. LB 04/09. Will continue to follow. Recommendations: 1) Continue regular diet 2) Ensure Enlive TID (sub Ensure Plus HP d/t product shortage) 3) [place] food preferences: No pasta, caffeine, or ice cream; sub sherbet or [place] ice 4) Encourage PO intake 5) Routine bowel care 6) Daily scaled weights per rx Addendum: 04/11/22 at [address] Amended: Links added.
--- NOTE | 2022-04-11 14:35 | NUR ---
SVN refused by pt. Stated she didn't need one at this time
[2022-04-11 15:03] VITALS: BP 155/63
--- NOTE | 2022-04-11 15:24 | NUR ---
MD placed new order - acetazolamide 500mg, q24hrs, due at 1511, please send DAMASO. thank you, Avelina Harrell LVN II @3567.
[2022-04-11] MEDS: acetaZOLAMIDE 500mg capsule.SA PO SCH (15:38)
--- NOTE | 2022-04-11 18:21 | NUR ---
Problems reprioritized. Patient report given, questions answered & plan of care reviewed with Cydney SANTANA. Addendum: 04/11/22 at 1846 by Renae Alegria RN Report given to Mireille SANTANA
[2022-04-12] MEDS: albuterol 2.5 MG/3 ML nebule NEB SCH ×3 (02:59→15:00)
[2022-04-12 04:30] VITALS: BP 146/72
[2022-04-12] MEDS: diltiazem 30mg tablet PO SCH ×3 (04:38→16:00)
[2022-04-12 06:00] VITALS: BP 124/64
[2022-04-12 06:07] LABS: BASOPHILS % (AUTO) 0.1 % (0-1); EOSINOPHILS # (AUTO) 0.4 X10'3 (0-0.9); EOSINOPHILS % (AUTO) 1.3 % (0-6); HEMATOCRIT 34.6 % (35.0-45.0); HEMOGLOBIN 11.1 g/dl (12.0-16.0); LYMPHOCYTES # (AUTO) 3.2 X10'3 (1.1-4.8); LYMPHOCYTES % (AUTO) 11.2 % (21-51); MEAN CORPUSCULAR HEMOGLOBIN 29.8 PG (27.0-31.0); MEAN CORPUSCULAR HGB CONC 32.1 g/dL (33.0-36.5); MEAN CORPUSCULAR VOLUME 92.6 FL (78-98); MEAN PLATELET VOLUME 7.9 FL (7.4-10.4); MONOCYTES # (AUTO) 2.4 X10'3 (0-0.9); MONOCYTES % (AUTO) 8.6 % (2-12); NEUTROPHILS # (AUTO) 22.4 X10'3 (1.8-7.7); NEUTROPHILS % (AUTO) 78.8 % (42-75); PLATELET COUNT 343 X10'3 (140-440); RED BLOOD COUNT 3.74 X10'6 (4.20-5.60); RED CELL DISTRIBUTION WIDTH 13.9 % (11.5-14.5)
[2022-04-12 06:21] LABS: WHITE BLOOD COUNT 28.5 X10'3 (4.5-11.0)
[2022-04-12 06:34] LABS: PLATELET ESTIMATE NORMAL; TOTAL CELLS COUNTED 100
[2022-04-12 06:38] LABS: ALANINE AMINOTRANSFERASE 29 U/L (12-78); ALBUMIN 2.2 G/DL (3.4-5.0); ALBUMIN/GLOBULIN RATIO 0.7 (1.1-1.5); ALKALINE PHOSPHATASE 59 IU/L (46-116); ANION GAP 8 (8-16); ASPARTATE AMINO TRANSFERASE 15 U/L (10-37); BILIRUBIN,TOTAL 0.5 MG/DL (0.1-1.0); BLOOD UREA NITROGEN 54 MG/DL (7-18); BUN/CREATININE RATIO 41.9 (6.6-38.0); CALCIUM 8.6 MG/DL (8.5-10.1); CHLORIDE 100 MMOL/L (99-107); CREATININE 1.29 MG/DL (0.40-0.90); GLUCOSE 99 MG/DL (70-104); SODIUM 139 MMOL/L (135-145); TOTAL PROTEIN 5.2 G/DL (6.4-8.2); eGFR 39 ML/MIN
--- NOTE | 2022-04-12 06:40 | NUR ---
PAGER ID: [phone] MESSAGE: Danae Baxter 3028B Crit WBC 28.5. trending down from 34.5. -Renae Wilkins EXT [id number]
--- NOTE | 2022-04-12 07:00 | NUR ---
Patient in room U 3028B. I have received report from Mireille SANTANA and had the opportunity to ask questions and assume patient care. Pt is laying semi fowlers in bed. Pt resting comfortably. Pt on 3L NC. No s/s of distress. No s/s of distress, or s/s of pain at this time. BLL, call light wihtin reach, frequently used items in reach, frequent rounding, basket grader socks on. Will continue to monitor.
[2022-04-12] MEDS: budesonide 0.5mg/2ml UD nebule IH SCH (07:45)
[2022-04-12] MEDS: K and/or MAG REPLACEMENT MC SCH (08:00)
[2022-04-12] MEDS: CefTRIAXone 2gm/D5W 50ml BAG 50 ML IV SCH (08:18)
[2022-04-12] MEDS: furosemide 40mg/4ml inj IV SCH (08:18)
[2022-04-12] MEDS: docusate sod 100mg capsule PO SCH (08:19)
[2022-04-12] MEDS: acetaZOLAMIDE 500mg capsule.SA PO SCH (08:20)
[2022-04-12] MEDS: ESCITALOPRAM OXALATE 5 MG TABLET PO SCH (08:20)
[2022-04-12] MEDS: famotidine 20mg tablet PO SCH (08:20)
[2022-04-12] MEDS: apixaban 2.5mg tablet PO SCH (08:20)
[2022-04-12] MEDS: aspirin 81mg tab.chew PO SCH (08:21)
[2022-04-12] MEDS: lisinopril 20mg tablet PO SCH (08:21)
[2022-04-12 09:30] VITALS: BP 126/50
[2022-04-12 11:00] VITALS: BP 139/45
--- NOTE | 2022-04-12 11:35 | NUR ---
PAGER ID: [phone] MESSAGE: Dnaae Baxter 3028 B: Pt unable to get Eliquis d/t insurances. Pt asking to go home with Coumadin. -Renae EXT [id number]
[2022-04-12] MEDS ORDERED: CEFD300C21 PO (12:27)
[2022-04-12] MEDS ORDERED: ENOX40SY7 SQ (12:27)
--- NOTE | 2022-04-12 12:50 | NUR ---
O2 Sat at rest on room air:_89_% If below 89%: Recovery O2 Sat at rest on __3.0_LPM:___%:__95_% via nasal cannula (mask/nasal cannula, etc..) No further documentation is necessary. If O2 Sat did not drop below 89% on room air,ambulate patient on room air. O2 Sat while ambulating on room air:___% Recovery O2 Sat while ambulating on ___LPM:___% No further documentation is necessary. If patient does not drop below 89% while ambulating, he/she does not qualify for home O2. Addendum: 04/12/22 at 1335 by Satnam Verdugo LVN Addendum- SPO2-88% see new note.
[2022-04-12] MEDS: lactose-reduced food (Ensure Enlive) - 237ml bottle PO SCH (13:00)
--- NOTE | 2022-04-12 13:35 | NUR ---
O2 Sat at rest on room air:_88__% If below 89%: Recovery O2 Sat at rest on __3_LPM:___%:_95__% via Nasal Cannula (mask/nasal cannula, etc..) No further documentation is necessary. If O2 Sat did not drop below 89% on room air,ambulate patient on room air. O2 Sat while ambulating on room air:___% Recovery O2 Sat while ambulating on ___LPM:___% No further documentation is necessary. If patient does not drop below 89% while ambulating, he/she does not qualify for home O2.
== END 2022-04-12 16:59 | disposition home health service (06) | DRG 871 ==
LOC: ER 11:30 → ED HOLD 13:19 → EDBEDREQ 21:06 → PCU 3S 04-02 07:59 → CICU 2S 04-04 11:39 → PCU 3S 04-05 18:14
PROVIDERS: ADMIT Family Medicine; ATTEND Family Medicine
PROC: 5A09357 Assistance with Respiratory Ventilation, Less than 24 Consecutive Hours, Continuous Positive Airway Pressure (ICD-10-PCS; principal; 2022-04-02)
PROC: 5A09357 Assistance with Respiratory Ventilation, Less than 24 Consecutive Hours, Continuous Positive Airway Pressure (ICD-10-PCS; 2022-04-03)
PROC: 5A09357 Assistance with Respiratory Ventilation, Less than 24 Consecutive Hours, Continuous Positive Airway Pressure (ICD-10-PCS; 2022-04-04)
PROC: 5A0935A Assistance with Respiratory Ventilation, Less than 24 Consecutive Hours, High Flow/Velocity Cannula (ICD-10-PCS; 2022-04-04)
PROC: 5A09357 Assistance with Respiratory Ventilation, Less than 24 Consecutive Hours, Continuous Positive Airway Pressure (ICD-10-PCS; 2022-04-05)
PROC: 5A0935A Assistance with Respiratory Ventilation, Less than 24 Consecutive Hours, High Flow/Velocity Cannula (ICD-10-PCS; 2022-04-05)
PROC: 5A09357 Assistance with Respiratory Ventilation, Less than 24 Consecutive Hours, Continuous Positive Airway Pressure (ICD-10-PCS; 2022-04-06)
PROC: 5A0935A Assistance with Respiratory Ventilation, Less than 24 Consecutive Hours, High Flow/Velocity Cannula (ICD-10-PCS; 2022-04-06)
PROC: 5A09357 Assistance with Respiratory Ventilation, Less than 24 Consecutive Hours, Continuous Positive Airway Pressure (ICD-10-PCS; 2022-04-07)
PROC: 5A0935A Assistance with Respiratory Ventilation, Less than 24 Consecutive Hours, High Flow/Velocity Cannula (ICD-10-PCS; 2022-04-07)
PROC: 5A09357 Assistance with Respiratory Ventilation, Less than 24 Consecutive Hours, Continuous Positive Airway Pressure (ICD-10-PCS; 2022-04-08)
PROC: 5A0935A Assistance with Respiratory Ventilation, Less than 24 Consecutive Hours, High Flow/Velocity Cannula (ICD-10-PCS; 2022-04-08)
PROC: 5A09357 Assistance with Respiratory Ventilation, Less than 24 Consecutive Hours, Continuous Positive Airway Pressure (ICD-10-PCS; 2022-04-09)
PROC: 5A09357 Assistance with Respiratory Ventilation, Less than 24 Consecutive Hours, Continuous Positive Airway Pressure (ICD-10-PCS; 2022-04-10)
DX: A41.3 Sepsis due to Hemophilus influenzae (principal); I21.A1 Myocardial infarction type 2; J96.21 Acute and chronic respiratory failure with hypoxia; J14 Pneumonia due to Hemophilus influenzae; N17.0 Acute kidney failure with tubular necrosis; E87.1 Hypo-osmolality and hyponatremia; J44.1 Chronic obstructive pulmonary disease with (acute) exacerbation; E46 Unspecified protein-calorie malnutrition; E87.20 Acidosis, unspecified; J44.0 Chronic obstructive pulmonary disease with (acute) lower respiratory infection; Z20.822 Contact with and (suspected) exposure to COVID-19; I12.9 Hypertensive chronic kidney disease with stage 1 through stage 4 chronic kidney disease, or unspecified chronic kidney disease; F32.A Depression, unspecified; G47.33 Obstructive sleep apnea (adult) (pediatric); N18.9 Chronic kidney disease, unspecified; K21.9 Gastro-esophageal reflux disease without esophagitis; R73.9 Hyperglycemia, unspecified; R65.20 Severe sepsis without septic shock; D72.823 Leukemoid reaction; I48.91 Unspecified atrial fibrillation; T45.515A Adverse effect of anticoagulants, initial encounter; Z79.01 Long term (current) use of anticoagulants; Z85.828 Personal history of other malignant neoplasm of skin; Z86.711 Personal history of pulmonary embolism; Z87.891 Personal history of nicotine dependence; Z79.899 Other long term (current) drug therapy; Z68.28 Body mass index [BMI] 28.0-28.9, adult; Y92.89 Other specified places as the place of occurrence of the external cause
CPT/HCPCS: 36415; 36600; 71045; 71250; 80053; 82803; 83605; 83735; 83880; 84100; 84145; 84443; 84484; 85007; 85018; 85025; 85610; 87040; 87077; 87081; 87185; 87811; 93005; 93306; 94640; 94660; 94760; 96365; 96368; 96375; 97116; 97161; 97530; 99285; A4615; A6213; A6250; A7015; G0378; J0360; J0456; J0696; J1650; J1940; J2930; J3430; J3490; J7030; J7040; J7512

== ENCOUNTER 2023-02-13 12:59 | Emergency (ER) | payer MEDICARE ==
[~2023-02-13] VITALS: Ht 147.3 cm; Wt 70.5 kg
[~2023-02-13 12:59] MED LIST changes: +ALBU18HF2 PO; -ASPI-1265 PO; -CITA20TA28 PO; +ENOX40SY7 SQ; +ESCI20TA39 PO; +FLUT1BLS13 PO; -RED600TA PO; +WARF4TAB69 PO; -cpap; -d-3
[2023-02-13 13:07] VITALS: PULSE 77
[2023-02-13 14:07] VITALS: BP 164/73; RESP 20; O2SAT 96
[2023-02-13 15:44] VITALS: TEMP 97
--- NOTE | 2023-02-14 12:46 | NUR ---
PT. DOCUMENTATION COMPLETED BY RESTORATIVE COORDINATOR HAS BEEN REVIEWED AND CONCUR WITH RESTORATIVE COORDINATOR.
== END 2023-02-14 06:46 | disposition home or self-care (01) ==
LOC: ER 13:00
DX: S01.111A Laceration without foreign body of right eyelid and periocular area, initial encounter (principal); S09.90XA Unspecified injury of head, initial encounter; J44.9 Chronic obstructive pulmonary disease, unspecified; I10 Essential (primary) hypertension; Z79.899 Other long term (current) drug therapy; Z79.1 Long term (current) use of non-steroidal anti-inflammatories (NSAID); W19.XXXA Unspecified fall, initial encounter; Y93.89 Activity, other specified; Y92.89 Other specified places as the place of occurrence of the external cause; Y99.8 Other external cause status
CPT/HCPCS: 70450; 73140; 99284; A6449